=== PATIENT | male | born 1990 | race Two or more races ===

== ENCOUNTER 2018-07-11 23:56 | Emergency (ER) | payer OTHER ==
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
[2018-07-12 01:20] VITALS: BP 133/68
== END 2018-07-12 01:38 | disposition home or self-care (01) ==
PROC: 2W3RX1Z Immobilization of Left Lower Leg using Splint (ICD-10-PCS; principal; 2018-07-11)
DX: S93.402A Sprain of unspecified ligament of left ankle, initial encounter (principal); S93.602A Unspecified sprain of left foot, initial encounter; W00.0XXA Fall on same level due to ice and snow, initial encounter; Y92.9 Unspecified place or not applicable; Y93.9 Activity, unspecified; Y99.9 Unspecified external cause status